=== PATIENT | male | born 1935 | race Caucasian/White ===

== ENCOUNTER 2016-09-14 10:05 | Outpatient (CLI) | payer MEDICARE, OTHER ==
[2016-09-14 10:26] LABS: Prothrombin Time 24.7 SEC (12.0-14.7)
== END 2016-09-14 10:06 | disposition home or self-care (01) ==
LOC: BURLAB 10:05
PROVIDERS: ATTEND Internal Medicine Cardiovascular Disease
DX: I48.91 Unspecified atrial fibrillation (principal)
CPT/HCPCS: 36415; 85610

== ENCOUNTER 2016-12-07 09:52 | Outpatient (CLI) | payer MEDICARE, OTHER ==
[2016-12-07 10:22] LABS: Hemoglobin 15.1 g/dL (14.0-18.0); Mean Corpuscular HGB CONC 34.7 g/dL (32.0-36.0); Mean Corpuscular Hemoglobin 31.6 pg (27.0-31.0); Mean Corpuscular Volume 91.1 fl (80.0-94.0); Mean Platelet Volume 8.1 fL (7.4-10.4); Platelet Count 136 thou/uL (130-400); RBC Distribution Width 13.3 % (11.5-14.5); Red Blood Cell (RBC) Count 4.77 mill/uL (4.70-6.10); White Blood Cell (WBC) Count 7.6 thou/uL (4.8-10.8)
[2016-12-07 10:39] LABS: ALT (SGPT) 13 U/L (0-55); AST (SGOT) 20 U/L (5-34); Alkaline Phosphatase 83 U/L (40-150); Anion Gap 13 mmol/L (10-20); BUN (Urea Nitrogen) 35 mg/dL (8.4-25.7); Bilirubin, Total 1.1 mg/dL (0.2-1.2); Calc. Creatinine Clearance 0 mL/min (70-130); Calcium 9.3 mg/dL (7.8-10.44); Carbon Dioxide 23 mmol/L (23-31); Cardiac Risk 3.6 (Less than 4.5); Chloride 109 mmol/L (98-107); Cholesterol 94 mg/dL (< 200 Desired); Estimated GFR-MDRD 31; Globulin 2.6 g/dL (2.4-3.5); Glucose 231 mg/dL (83-110); HDL Cholesterol 26 mg/dL (>60 Neg Risk); LDL Cholesterol, Calculated 31 mg/dL; Potassium 4.7 mmol/L (3.5-5.1); Protein, Total 6.6 g/dL (5.8-8.1); Sodium 140 mmol/L (136-145); Triglycerides 186 mg/dL (Less than 150)
[2016-12-07 10:58] LABS: Free T4 (Free Thyroxine) 1.17 ng/dL (0.70-1.48); Thyroid Stimulating Hormone 2.6527 uIU/mL (0.35-4.94)
== END 2016-12-07 09:53 | disposition home or self-care (01) ==
LOC: BURLAB 09:52
PROVIDERS: ATTEND Internal Medicine Endocrinology, Diabetes & Metabolism
DX: I25.10 Atherosclerotic heart disease of native coronary artery without angina pectoris (principal); I48.91 Unspecified atrial fibrillation; R53.83 Other fatigue; I12.9 Hypertensive chronic kidney disease with stage 1 through stage 4 chronic kidney disease, or unspecified chronic kidney disease; N18.3 Chronic kidney disease, stage 3 (moderate); E11.21 Type 2 diabetes mellitus with diabetic nephropathy; E78.5 Hyperlipidemia, unspecified
CPT/HCPCS: 36415; 80053; 80061; 83036; 84439; 84443; 85027

== ENCOUNTER 2017-03-09 09:27 | Outpatient (CLI) | payer MEDICARE, OTHER ==
[2017-03-09 10:13] LABS: Anion Gap 15 mmol/L (10-20); BUN (Urea Nitrogen) 32 mg/dL (8.4-25.7); Calc. Creatinine Clearance 0 mL/min (70-130); Calcium 9.5 mg/dL (7.8-10.44); Carbon Dioxide 25 mmol/L (23-31); Chloride 105 mmol/L (98-107); Estimated GFR-MDRD 34; Glucose 163 mg/dL (83-110); Potassium 4.8 mmol/L (3.5-5.1); Sodium 140 mmol/L (136-145)
== END 2017-03-09 09:28 | disposition home or self-care (01) ==
LOC: BURLAB 09:27
PROVIDERS: ATTEND Internal Medicine Nephrology
DX: N18.3 Chronic kidney disease, stage 3 (moderate) (principal)
CPT/HCPCS: 36415; 80048